=== PATIENT | female | born 1980 | race Hispanic/Latino ===

== ENCOUNTER 2023-06-12 09:23 | Outpatient (CLI) | payer BC ==
[2023-06-12] MEDS ORDERED: Magnevist 469MG/ML 20 ML VIAL ONE (11:19)
== END 2023-06-12 09:24 | disposition home or self-care (01) ==
LOC: BICMRI 09:23
PROVIDERS: ATTEND Psychiatry & Neurology Neurology
DX: R51.9 Headache, unspecified (principal)
CPT/HCPCS: 70553; A9579